=== PATIENT | female | born 1960 | race Caucasian/White ===

== ENCOUNTER 2018-01-13 21:05 | Inpatient (IN) | payer MEDICAID ==
[~2018-01-13] VITALS: Ht 149.9 cm; Wt 41.8 kg
[2018-01-13 21:33] LABS: Basophils # (auto) 0.1 uL; Basophils % (auto) 0.5 % (0.0-2.0); Eosinophils # (auto) 0.1 uL; Eosinophils % (auto) 0.9 % (0.0-7.0); Hematocrit 39.1 % (36.0-46.0); Lymphocytes % (auto) 7.4 % (10.0-50.0); Mean Corpuscular Hemoglobin 30.2 pg (28.0-32.0); Mean Corpuscular Hgb Conc. 33.2 g/dL (32.0-36.0); Mean Corpuscular Volume 91.1 fL (80.0-100.0); Monocytes # (auto) 0.7 uL; Monocytes % (auto) 5.2 % (0.0-12.0); Neutrophils # (auto) 11.8 uL; Nucleated Red Blood Cells % 0.1 %; Platelet Count (auto) 352 10^3/uL (140-450); Red Cell Distribution Width 14.5 % (11.8-14.3); White Blood Cell 13.7 10^3/uL (4.4-10.8)
[2018-01-13 21:51] LABS: INR 1.06 (0.9-1.15); Partial Thromboplastin Time 28.9 sec (22.64-33.71); Prothrombin Time 11.6 sec (9.37-12.3)
[2018-01-13 21:55] LABS: BUN/Creatinine Ratio 13.3; Bilirubin, Total 0.5 mg/dL (0.2-1.0); Calcium 8.2 mg/dL (8.5-10.1); Magnesium 2.2 mg/dL (1.6-2.6); Potassium 3.3 mmol/L (3.5-5.1); Total Protein 6.8 g/dL (6.4-8.2)
[2018-01-13] MEDS ORDERED: IOHEXOL 350 MG/ML 100ML IJ ONE (22:06)
[2018-01-13] MEDS ORDERED: IPRATROPIUM BROM 0.5 MG/2.5ML INH SOL NEB ONE (22:30)
[2018-01-13] MEDS ORDERED: traMADol HCL 50 MG TAB PO ONE (22:30)
[2018-01-13] MEDS ORDERED: methylPREDNISolone SOD SUCC 125 MG/2 ML VL IV ONE (22:30)
[2018-01-13] MEDS ORDERED: cefTRIAXone 1GM/10ml IVPUSH 10 ML IV ONE (22:30)
[2018-01-13] MEDS ORDERED: ALBUTEROL SULF 2.5 MG/0.5ML(0.5%) NEB SOLN NEB ONE (22:30)
[2018-01-13] MEDS: MAGNESIUM SULFATE 1GM/100ML 100 ML IV SCH ×2 (22:51→23:58)
[2018-01-13] MEDS ORDERED: LABETALOL HCL 5 MG/ML ML 20ML VIAL IV ONE (23:00)
[2018-01-14] VITALS (23 sets, daily range): BP systolic 131–173; BP diastolic 41–103
[2018-01-14] MEDS ORDERED: LIDOCAINE 1% HCL (LOCAL ANESTH.) INJ 20ML MDV ONE (00:58)
[2018-01-14] MEDS ORDERED: FUROSEMIDE 40 MG/4 ML VIAL IV ONE (01:00)
[2018-01-14] MEDS ORDERED: TEMAZEPAM 15 MG CAP PO PRN (01:00)
[2018-01-14] MEDS ORDERED: NITROGLYCERIN 0.4 MG SL TAB SL PRN (01:00)
[2018-01-14] MEDS ORDERED: ENOXAPARIN SOD 40 MG/0.4 ML SYRINGE SC ONE (01:00)
[2018-01-14] MEDS ORDERED: ACETAMINOPHEN 325 MG TAB PO PRN (01:00)
[2018-01-14] MEDS ORDERED: CARVEDILOL 3.125 MG TAB PO ONE (01:00)
[2018-01-14] MEDS ORDERED: MORPHINE SULFATE 4 MG/ML SYR/VIAL IV PRN (01:00)
[2018-01-14] MEDS ORDERED: POTASSIUM CHL 20 Meq TABLET PO ONE (01:30)
[2018-01-14 02:43] LABS: Urine Bacteria FEW /hpf (None Seen); Urine Blood 1+ /uL (Negative); Urine Mucus FEW (None Seen); Urine Specific Gravity 1.034 (1.001-1.035); Urine WBC 25 /hpf (0 - 5)
[2018-01-14 02:58] LABS: Alcohol, Urine < 3.0 mg/dL (0-5); Amphetamine Screen, Urine POSITIVE (NEGATIVE); Barbiturate Scree,Urine NEGATIVE (NEGATIVE); Benzodiazephine Screen, Urine NEGATIVE (NEGATIVE); Cannabinoid Screen, Urine NEGATIVE (NEGATIVE); Cocaine Screen, Urine NEGATIVE (NEGATIVE); Opiate Scree,Urine NEGATIVE (NEGATIVE); Phencyclidine Screen, Urine NEGATIVE (NEGATIVE)
[2018-01-14] MEDS ORDERED: FUROSEMIDE 20 MG/2 ML VIAL IV SCH (06:00)
[2018-01-14] MEDS: cloNIDine HCL 0.1 MG TAB PO PRN (06:40)
[2018-01-14 07:42] LABS: Basophils # (auto) 0 uL; Basophils % (auto) 0.1 % (0.0-2.0); Eosinophils # (auto) 0 uL; Hematocrit 40.3 % (36.0-46.0); Hemoglobin 13.2 g/dL (12.2-16.2); Lymphocytes # (auto) 0.3 uL; Lymphocytes % (auto) 3.3 % (10.0-50.0); Mean Corpuscular Hemoglobin 29.7 pg (28.0-32.0); Mean Corpuscular Hgb Conc. 32.8 g/dL (32.0-36.0); Mean Corpuscular Volume 90.5 fL (80.0-100.0); Monocytes # (auto) 0.1 uL; Monocytes % (auto) 1.2 % (0.0-12.0); Neutrophils # (auto) 8.6 uL; Neutrophils % (auto) 95.4 % (37.0-80.0); Platelet Count (auto) 340 10^3/uL (140-450); Red Blood Cells 4.46 10^6/uL (4.0-5.20); Red Cell Distribution Width 14.9 % (11.8-14.3)
[2018-01-14 08:04] LABS: BUN/Creatinine Ratio 17.8; Calcium 8.2 mg/dL (8.5-10.1); Potassium 3.5 mmol/L (3.5-5.1)
[2018-01-14] MEDS: FAMOTIDINE 20 MG TAB PO SCH ×2 (10:22→21:49)
[2018-01-14] MEDS: CARVEDILOL 3.125 MG TAB PO SCH ×2 (10:22→21:49)
[2018-01-14] MEDS ORDERED: ENOXAPARIN SOD 40 MG/0.4 ML SYRINGE SC SCH (13:00)
[2018-01-14] MEDS ORDERED: LIDOCAINE 2% (LOCAL ANESTH.) PF 5ml SDV ONE ×2 (13:57→14:26)
[2018-01-14] MEDS: POTASSIUM CHL 20 Meq TABLET PO SCH (17:56)
[2018-01-14] MEDS: FUROSEMIDE 20 MG/2 ML VIAL IV SCH (17:59)
[2018-01-15] MEDS: ALBUTEROL SULF 2.5 MG/0.5ML(0.5%) NEB SOLN NEB PRN (03:36)
[2018-01-15] MEDS: HYDROcodone-ACET 5/325MG TAB PO PRN ×3 (03:52→19:24)
[2018-01-15 05:09] VITALS: BP 129/75
[2018-01-15] MEDS: POTASSIUM CHL 20 Meq TABLET PO SCH (06:00)
[2018-01-15] MEDS: FUROSEMIDE 20 MG/2 ML VIAL IV SCH (06:12)
[2018-01-15 06:35] LABS: Basophils # (auto) 0 uL; Basophils % (auto) 0.3 % (0.0-2.0); Eosinophils # (auto) 0.1 uL; Eosinophils % (auto) 0.8 % (0.0-7.0); Hematocrit 38.3 % (36.0-46.0); Hemoglobin 12.6 g/dL (12.2-16.2); Lymphocytes # (auto) 0.7 uL; Lymphocytes % (auto) 6.7 % (10.0-50.0); Mean Corpuscular Hgb Conc. 32.9 g/dL (32.0-36.0); Mean Corpuscular Volume 91.3 fL (80.0-100.0); Monocytes # (auto) 0.6 uL; Monocytes % (auto) 5.2 % (0.0-12.0); Neutrophils # (auto) 9.4 uL; Platelet Count (auto) 341 10^3/uL (140-450); Red Cell Distribution Width 14.6 % (11.8-14.3); White Blood Cell 10.8 10^3/uL (4.4-10.8)
[2018-01-15 06:47] LABS: Albumin 2.6 g/dL (3.4-5.0)
[2018-01-15 06:49] LABS: BUN/Creatinine Ratio 32.7
[2018-01-15 06:53] LABS: Bilirubin, Total 0.3 mg/dL (0.2-1.0); Total Protein 6.4 g/dL (6.4-8.2)
[2018-01-15 08:30] VITALS: BP 144/82
[2018-01-15] MEDS: FAMOTIDINE 20 MG TAB PO SCH ×2 (10:39→21:49)
[2018-01-15] MEDS: LISINOPRIL 10 MG TAB PO SCH (10:40)
[2018-01-15] MEDS: CARVEDILOL 3.125 MG TAB PO SCH ×2 (10:41→21:48)
[2018-01-15] MEDS: ONDANSETRON HCL 4 MG/2 ML VIAL IV PRN (12:18)
[2018-01-15 12:30] VITALS: BP 160/86
[2018-01-15 16:28] VITALS: BP 104/55
[2018-01-15 20:00] VITALS: BP 121/57
[2018-01-15 21:47] VITALS: BP 121/57
[2018-01-16 04:34] VITALS: BP 134/65
[2018-01-16 07:29] LABS: BUN/Creatinine Ratio 35.7; Calcium 8.1 mg/dL (8.5-10.1); Potassium 3.8 mmol/L (3.5-5.1)
[2018-01-16] MEDS ORDERED: IOHEXOL 350 MG/ML 100ML IJ ONE (08:30)
[2018-01-16] MEDS: ALBUTEROL SULF 2.5 MG/0.5ML(0.5%) NEB SOLN NEB PRN (08:32)
[2018-01-16 09:00] VITALS: BP 166/96
[2018-01-16] MEDS: FAMOTIDINE 20 MG TAB PO SCH ×2 (09:36→21:42)
[2018-01-16] MEDS: FUROSEMIDE 20 MG/2 ML VIAL IV SCH (09:36)
[2018-01-16] MEDS: LISINOPRIL 10 MG TAB PO SCH (09:37)
[2018-01-16] MEDS: CARVEDILOL 3.125 MG TAB PO SCH ×2 (09:37→21:43)
[2018-01-16] MEDS: POTASSIUM CHL 20 Meq TABLET PO SCH (09:38)
[2018-01-16] MEDS ORDERED: cefTRIAXone 1GM/10ml IVPUSH 10 ML IV ONE (11:45)
[2018-01-16 13:00] VITALS: BP 118/47
[2018-01-16] MEDS: amLODIPine BESYLATE 5 MG TAB PO SCH (14:16)
[2018-01-16 17:00] VITALS: BP 148/79
[2018-01-16 18:45] VITALS: BP 118/47
[2018-01-16 22:00] VITALS: BP 162/78
[2018-01-17] MEDS: ALBUTEROL SULF 2.5 MG/0.5ML(0.5%) NEB SOLN NEB PRN ×2 (01:23→12:40)
[2018-01-17 05:00] VITALS: BP 154/72
[2018-01-17 09:00] VITALS: BP 149/79
[2018-01-17] MEDS: FAMOTIDINE 20 MG TAB PO SCH ×2 (10:33→22:00)
[2018-01-17] MEDS: LISINOPRIL 10 MG TAB PO SCH (10:34)
[2018-01-17] MEDS: CARVEDILOL 3.125 MG TAB PO SCH ×2 (10:34→22:00)
[2018-01-17] MEDS: POTASSIUM CHL 20 Meq TABLET PO SCH (10:34)
[2018-01-17] MEDS: amLODIPine BESYLATE 5 MG TAB PO SCH (10:35)
[2018-01-17] MEDS: cefTRIAXone 1GM/10ml IVPUSH 10 ML IV SCH (10:36)
[2018-01-17] MEDS: FUROSEMIDE 20 MG/2 ML VIAL IV SCH (10:36)
[2018-01-17] MEDS ORDERED: ADENOSINE 37 MG in GIVE UN-DILUTED 0 ML IV ONE (12:30)
[2018-01-17] MEDS ORDERED: IPRATROPIUM BROM 0.5 MG/2.5ML INH SOL ONE (12:40)
[2018-01-17] MEDS ORDERED: ALBUTEROL SULF 2.5 MG/0.5ML(0.5%) NEB SOLN ONE (12:40)
[2018-01-17 12:44] VITALS: BP 136/75
[2018-01-17 17:00] VITALS: BP 154/89
[2018-01-17] MEDS: HYDROcodone-ACET 5/325MG TAB PO PRN (21:15)
[2018-01-17 21:47] VITALS: BP 155/77
[2018-01-18 04:51] VITALS: BP 150/88
[2018-01-18 06:19] LABS: Calcium 8.6 mg/dL (8.5-10.1); Potassium 3.9 mmol/L (3.5-5.1)
[2018-01-18 07:55] VITALS: BP 155/79
[2018-01-18 08:27] VITALS: BP 155/79
[2018-01-18] MEDS: cefTRIAXone 1GM/10ml IVPUSH 10 ML IV SCH (09:06)
[2018-01-18] MEDS: LISINOPRIL 10 MG TAB PO SCH (09:08)
[2018-01-18] MEDS: FAMOTIDINE 20 MG TAB PO SCH ×2 (09:08→21:52)
[2018-01-18] MEDS: CARVEDILOL 3.125 MG TAB PO SCH ×2 (09:09→21:52)
[2018-01-18] MEDS: POTASSIUM CHL 20 Meq TABLET PO SCH (09:09)
[2018-01-18] MEDS: amLODIPine BESYLATE 5 MG TAB PO SCH (09:10)
[2018-01-18] MEDS: FUROSEMIDE 20 MG/2 ML VIAL IV SCH (09:11)
[2018-01-18] MEDS: FUROSEMIDE 40 MG TAB PO SCH (10:45)
[2018-01-18 12:32] VITALS: BP 128/79
[2018-01-18] MEDS: ONDANSETRON HCL 4 MG/2 ML VIAL IV PRN (14:34)
[2018-01-18 16:44] VITALS: BP 155/90
[2018-01-18 21:20] VITALS: BP 163/92
[2018-01-18] MEDS: cloNIDine HCL 0.1 MG TAB PO PRN (21:52)
[2018-01-19 05:07] VITALS: BP 148/83
[2018-01-19 08:51] VITALS: BP 96/59
[2018-01-19] MEDS: amLODIPine BESYLATE 5 MG TAB PO SCH (10:00)
[2018-01-19] MEDS: cefTRIAXone 1GM/10ml IVPUSH 10 ML IV SCH (10:20)
[2018-01-19] MEDS: CARVEDILOL 3.125 MG TAB PO SCH (10:21)
[2018-01-19] MEDS: POTASSIUM CHL 20 Meq TABLET PO SCH (10:22)
[2018-01-19] MEDS: LISINOPRIL 10 MG TAB PO SCH (10:23)
[2018-01-19] MEDS: FUROSEMIDE 40 MG TAB PO SCH (10:23)
[2018-01-19] MEDS: ONDANSETRON HCL 4 MG/2 ML VIAL IV PRN (10:30)
[2018-01-19] MEDS: FAMOTIDINE 20 MG TAB PO SCH (10:31)
[2018-01-19 13:00] VITALS: BP 96/69
[2018-01-19 16:40] VITALS: BP 96/69
[2018-01-19] MEDS ORDERED: BOOST 8 ounces PO SCH (18:00)
== END 2018-01-19 16:40 | disposition home or self-care (01) | DRG 140 ==
LOC: EDBD 21:05 → ER 21:05 → ICU CENTRL 21:06 → DOU IN ICU 01-14 02:50 → EAST 01-14 23:35 → TELE-EAST 01-15 03:54 → EAST 01-18 12:21 → TELE-EAST 01-18 13:02
PROVIDERS: ADMIT Nurse Practitioner; ATTEND Internal Medicine
PROC: 0W993ZZ Drainage of Right Pleural Cavity, Percutaneous Approach (ICD-10-PCS; principal; 2018-01-14)
DX: J44.1 Chronic obstructive pulmonary disease with (acute) exacerbation (principal); J96.00 Acute respiratory failure, unspecified whether with hypoxia or hypercapnia; I50.31 Acute diastolic (congestive) heart failure; J90 Pleural effusion, not elsewhere classified; I11.0 Hypertensive heart disease with heart failure; E44.0 Moderate protein-calorie malnutrition; I74.09 Other arterial embolism and thrombosis of abdominal aorta; I51.3 Intracardiac thrombosis, not elsewhere classified; N39.0 Urinary tract infection, site not specified; F15.10 Other stimulant abuse, uncomplicated; E78.5 Hyperlipidemia, unspecified; I50.82 Biventricular heart failure; F17.200 Nicotine dependence, unspecified, uncomplicated; F14.10 Cocaine abuse, uncomplicated; F32.9 Major depressive disorder, single episode, unspecified; I73.9 Peripheral vascular disease, unspecified; G89.4 Chronic pain syndrome; J44.9 Chronic obstructive pulmonary disease, unspecified; Z79.82 Long term (current) use of aspirin; Z79.899 Other long term (current) drug therapy; Z90.49 Acquired absence of other specified parts of digestive tract; Z88.6 Allergy status to analgesic agent; Z91.030 Bee allergy status; Z68.1 Body mass index [BMI] 19.9 or less, adult
CPT/HCPCS: 10022; 36415; 36600; 71045; 71275; 75635; 76604; 76942; 80048; 80053; 80307; 81001; 82805; 83735; 83880; 84443; 84484; 85025; 85379; 85610; 85730; 87081; 87086; 93005; 93017; 93306; 93926; 94640; 94761; 96365; 96372; 96375; 97116; 97530; J0153; J2001; J2405

== ENCOUNTER 2018-01-21 20:03 | Emergency (ER) | payer MEDICAID ==
[~2018-01-21] VITALS: Ht 149.9 cm; Wt 44.9 kg
[2018-01-21 20:24] VITALS: BP 164/90
== END 2018-01-21 23:27 | disposition left against medical advice (07) ==
LOC: ER 20:03
DX: R11.2 Nausea with vomiting, unspecified (principal); R19.7 Diarrhea, unspecified; Z53.21 Procedure and treatment not carried out due to patient leaving prior to being seen by health care provider